=== PATIENT | female | born 1980 | race Caucasian/White ===

== ENCOUNTER 2017-08-19 05:00 | Day surgery (SDC) | payer OTHER ==
[2017-08-17 14:45] VITALS: BMI 41.3
[2017-08-19] MEDS ORDERED: IBUPROFEN 600 MG TABLET (FP) PO PRN (09:08)
[2017-08-19] MEDS ORDERED: ACETAMINOPHEN 325 MG TABLET (FP) PO PRN (09:08)
--- NOTE | 2017-08-19 09:08 | HP ---
History & Physical Update - History History: No Change - Physical Physical: No Change - Assessment Assessment: No Change - Plan Plan: No Change (AUB 2/2 uterine polyp - for hysteroscopy, D&C, polypectomy)
[2017-08-19] MEDS ORDERED: LACTATED RINGERS SOLUTION 1,000 ML IV SCH (09:15)
[2017-08-19] MEDS ORDERED: MIDAZOLAM HCL 2 MG/2 ML SINGLE DOSE VIAL ONE ×2 (09:22→09:38)
[2017-08-19] MEDS ORDERED: oxyCODONE HCL 5 MG TABLET PO PRN (10:04)
[2017-08-19] MEDS ORDERED: PROMETHAZINE HCL 25 MG/1 ML VIAL IVPUSH PRN (10:04)
[2017-08-19] MEDS ORDERED: ONDANSETRON 4 MG/2 ML VIAL IVPUSH PRN (10:04)
--- NOTE | 2017-08-19 11:44 | OP ---
Operative Note - Note: Operative Date: 08/19/17 Pre-Operative Diagnosis: AUB, endocervical polyp Operation: hysteroscopy, D&C, polypectomy Findings: cervical polyp, bilateral normal tubal ostea noted Surgeon: Kasia Mckeon Anesthesia: Spinal Estimated Blood Loss (mls): 10 Operative Report Dictated: Yes
[2017-08-19 13:04] VITALS: TEMP 97.6
[2017-08-19 15:23] VITALS: BP 106/61; PULSE 70
--- NOTE | 2017-08-20 11:45 | PATH ---
Surgical Pathology Report Patient Name: SANTOS HANSEN [facility]. Rec. #: [id number] /Age/Gender: 1980 (Age: 36) / F Account: [id number] [facility] Taken: 08/19/2017 Received: 08/19/2017 Reported: 08/20/2017 Physicians: Kasia Mckeon M.D. Specimen(s) Received A: ENDOMETRIAL CURETTINGS B: CERVICAL POLYP Clinical History Cervical polyp Final Diagnosis A. ENDOMETRIUM, CURETTING: SECRETORY ENDOMETRIUM. B. CERVIX, POLYPECTOMY: BENIGN ENDOMETRIAL POLYP, AND SECRETORY ENDOMETRIUM. NO ENDOMETRIAL HYPERPLASIA OR CARCINOMA IDENTIFIED. Electronically Signed Cipriano Elizabeth M.D. Gross Description A. Received in formalin labeled "endometrial curettings," is a 2.5 x 2.4 x 0.4 cm aggregate of vela soft tissue fragments. The formalin is filtered and the specimen is entirely submitted in one cassette. B. Received in formalin labeled "cervical polyp," is a 1.1 x 0.8 x 0.3 cm pink-vela, polypoid portion of soft tissue. The specimen is submitted in toto in one cassette. DL/08/19/2017 saudi08/19/2017
== END 2017-08-19 15:28 | disposition home or self-care (01) ==
LOC: JASU-SURG 05:00
PROVIDERS: ATTEND Obstetrics & Gynecology
PROC: 0UB98ZX Excision of Uterus, Via Natural or Artificial Opening Endoscopic, Diagnostic (ICD-10-PCS; principal; 2017-08-19 09:00)
PROC: 0UDB8ZX Extraction of Endometrium, Via Natural or Artificial Opening Endoscopic, Diagnostic (ICD-10-PCS; 2017-08-19 09:00)
DX: N93.9 Abnormal uterine and vaginal bleeding, unspecified (principal); N84.0 Polyp of corpus uteri
CPT/HCPCS: 88305-TC; 94760